=== PATIENT | male | born 1960 | race African-American/Black ===

== ENCOUNTER 2018-01-08 19:21 | Inpatient (IN) | payer OTHER ==
[~2018-01-08] VITALS: Ht 188 cm; Wt 59.0 kg
[2018-01-08] MEDS ORDERED: ASPIRIN 81MG TABLET PO ONE (21:15)
[2018-01-08 22:00] LABS: MEAN CORPUSCULAR HEMOGLOBIN 18.2 pg (28.0-32.0); MEAN CORPUSCULAR VOLUME 61.2 fL (80.0-94.0); MEAN PLATELET VOLUME 8.2 fl (7.4-10.4); PLATELET 258 x1000/uL (130-400); RED BLOOD CELL COUNT 3.72 mill/uL (4.7-6.1); RED CELL DISTRIBUTION WIDTH 21.4 % (11.6-14.6)
[2018-01-08 22:02] LABS: CHLORIDE 103 mEq/L (98-107); D-DIMER 1.91 mg/L FEU (<0.50); PARTIAL THROMBOPLASTIN TIME 25.6 sec (23.4-31.0); PROTHROMBIN TIME 10.3 sec (9.1-11.1)
[2018-01-08 22:06] LABS: HEMOGLOBIN. 6.8 g/dL (14.0-18.0)
[2018-01-08 22:07] LABS: HEMATOCRIT. 22.8 % (42.0-52.0)
[2018-01-08 22:54] LABS: PLATELET ESTIMATE NORMAL
[2018-01-09] MEDS ORDERED: LEVOFLOXACIN 750MG PREMIX 150 ML IV ONE (02:00)
[2018-01-09] MEDS ORDERED: SODIUM CHLORIDE 0.9% 1000ML BAG (SEPSIS BOLUS) IV ONE (02:00)
[2018-01-09] MEDS ORDERED: IOHEXOL-350 100 ML BOTTLE ONE (03:01)
[2018-01-09 03:49] LABS: CLARITY URINE CLOUDY (CLEAR); COLOR URINE YELLOW (YELLOW); KETONES URINE NEGATIVE (NEGATIVE); LEUKOCYTE ESTERASE URINE NEGATIVE (NEGATIVE); NITRITE URINE NEGATIVE (NEGATIVE); OCCULT BLOOD URINE NEGATIVE (NEGATIVE); PROTEIN URINE NEGATIVE (NEGATIVE); SPECIFIC GRAVITY URINE 1.018 (1.005-1.030)
[2018-01-09 11:13] VITALS: BP 136/81
[2018-01-09 11:36] VITALS: BP 136/81
[2018-01-09] MEDS ORDERED: HYDROCODONE/ACETAMINOPHEN 5/325MG TABLET PO PRN (11:45)
[2018-01-09] MEDS ORDERED: ACETAMINOPHEN 325MG TABLET PO PRN (11:45)
[2018-01-09] MEDS ORDERED: IPRATROPIUM/ALBUTEROL 0.5-3(2.5)MG/3ML NEB HHN PRN (11:45)
[2018-01-09] MEDS ORDERED: BENZONATATE 100MG CAPSULE PO PRN (11:45)
[2018-01-09] MEDS ORDERED: BUDESONIDE 0.5MG/2ML NEB HHN SCH (12:00)
[2018-01-09] MEDS ORDERED: SODIUM CHLORIDE 10% FOR INH 15ML VIAL NEB INH SCH (12:45)
[2018-01-09 16:48] VITALS: BP 118/68
[2018-01-09 19:55] LABS: *BARBITURATES SCREEN URINE NEGATIVE (NEGATIVE)
[2018-01-09 19:58] LABS: *AMPHETAMINES SCREEN URINE NEGATIVE (NEGATIVE); *BENZODIAZEPINES SCREEN URINE NEGATIVE (NEGATIVE); *COCAINE SCREEN URINE PRESUMTIVE POSITIVE (NEGATIVE); CANNABINOID URINE SCREEN NEGATIVE (NEGATIVE); METHADONE URINE SCREEN NEGATIVE (NEGATIVE); OPIATES URINE SCREEN PRESUMTIVE POSITIVE (NEGATIVE); PHENCYCLIDINE URINE SCREEN NEGATIVE (NEGATIVE)
[2018-01-09 20:00] VITALS: BP 113/68
[2018-01-10] VITALS (11 sets, daily range): BP systolic 104–141; BP diastolic 50–82
[2018-01-10 06:45] LABS: HEMATOCRIT 22.1 % (42.0-52.0); MEAN CORPUSCULAR HEMOGLOBIN 19.3 pg (28.0-32.0); MEAN CORPUSCULAR VOLUME 62.7 fL (80.0-94.0); PLATELET 253 x1000/uL (130-400); RED BLOOD CELL COUNT 3.52 mill/uL (4.7-6.1); RED CELL DISTRIBUTION WIDTH 23.8 % (11.6-14.6)
[2018-01-10 07:45] LABS: HEMOGLOBIN 6.8 g/dL (14.0-18.0)
[2018-01-10 07:48] LABS: CHLORIDE 101 mEq/L (98-107)
[2018-01-10] MEDS: LEVOFLOXACIN 750MG PREMIX 150 ML IV SCH (15:27)
[2018-01-10 23:39] LABS: HEMOGLOBIN 7.7 g/dL (14.0-18.0)
[2018-01-11] VITALS (9 sets, daily range): BP systolic 110–131; BP diastolic 62–78
[2018-01-11 08:22] LABS: HIV SCREEN 4G Non Reactive (Non Reactive)
[2018-01-11] MEDS: LEVOFLOXACIN 750MG PREMIX 150 ML IV SCH (14:08)
[2018-01-11 16:26] LABS: HEMATOCRIT 27.9 % (42.0-52.0); HEMOGLOBIN 8.7 g/dL (14.0-18.0); MEAN CORPUSCULAR HEMOGLOBIN 20.7 pg (28.0-32.0); MEAN CORPUSCULAR VOLUME 66.6 fL (80.0-94.0); PLATELET 268 x1000/uL (130-400); RED CELL DISTRIBUTION WIDTH 26.2 % (11.6-14.6)
[2018-01-11 16:30] LABS: INR 1.1; PROTHROMBIN TIME 10.6 sec (9.1-11.1)
[2018-01-11 16:43] LABS: CHLORIDE 101 mEq/L (98-107)
[2018-01-12 00:42] VITALS: BP 122/80
[2018-01-12 04:00] VITALS: BP 113/77
[2018-01-12 06:14] LABS: HEMATOCRIT 27.3 % (42.0-52.0); HEMOGLOBIN 8.6 g/dL (14.0-18.0); MEAN CORPUSCULAR HEMOGLOBIN 20.7 pg (28.0-32.0); MEAN CORPUSCULAR VOLUME 66.1 fL (80.0-94.0); PLATELET 271 x1000/uL (130-400); RED BLOOD CELL COUNT 4.14 mill/uL (4.7-6.1); RED CELL DISTRIBUTION WIDTH 26.3 % (11.6-14.6)
[2018-01-12 06:37] LABS: CHLORIDE 102 mEq/L (98-107)
[2018-01-12 08:00] VITALS: BP 101/61
[2018-01-12 12:00] VITALS: BP 110/65
[2018-01-12 16:00] VITALS: BP 127/77
[2018-01-12] MEDS: LEVOFLOXACIN 750MG PREMIX 150 ML IV SCH (16:42)
[2018-01-13] VITALS (8 sets, daily range): BP systolic 101–119; BP diastolic 51–73
[2018-01-13 07:15] LABS: HEMOGLOBIN 8.6 g/dL (14.0-18.0); MEAN CORPUSCULAR HEMOGLOBIN 21.2 pg (28.0-32.0); MEAN CORPUSCULAR VOLUME 66.3 fL (80.0-94.0); PLATELET 272 x1000/uL (130-400); RED BLOOD CELL COUNT 4.07 mill/uL (4.7-6.1)
[2018-01-13 10:15] LABS: CHLORIDE 101 mEq/L (98-107)
[2018-01-14] VITALS: BP 118/67
[2018-01-14 04:00] VITALS: BP 105/65
[2018-01-14 07:30] LABS: HEMATOCRIT 30.6 % (42.0-52.0); HEMOGLOBIN 9.5 g/dL (14.0-18.0); MEAN CORPUSCULAR HEMOGLOBIN 20.8 pg (28.0-32.0); MEAN CORPUSCULAR VOLUME 66.9 fL (80.0-94.0); PLATELET 292 x1000/uL (130-400); RED BLOOD CELL COUNT 4.57 mill/uL (4.7-6.1); RED CELL DISTRIBUTION WIDTH 27.3 % (11.6-14.6)
[2018-01-14 07:53] LABS: CHLORIDE 100 mEq/L (98-107)
[2018-01-14 09:54] VITALS: BP 112/66
[2018-01-14] MEDS ORDERED: LIDOCAINE HCL/PF 1% 2ML VIAL ONE (10:24)
[2018-01-14 12:51] VITALS: BP 108/65
[2018-01-14] MEDS: LEVOFLOXACIN 750MG PREMIX 150 ML IV SCH (14:21)
[2018-01-14 16:21] LABS: BG CARBOXYHEMOGLOBIN 0.4 % (0.5-1.5); BG DEOXYHEMOGLOBIN 3.7 % (0.0-5.0); BG FRACTION INSPIRED OXYGEN 21; BG HCO3 ACT 25.5 mmol/L (22.0-26.0); BG METHEMOGLOBIN 0.2 % (0.0-1.5); BG OXYGEN SATURATION 96.3 % (92.0-98.5); BG OXYHEMOGLOBIN 95.7 % (94.0-97.0); BG PCO2 39.8 mmHg (35.0-45.0); BG PH 7.424 (7.350-7.450); BG PO2 81.5 mmHg (75.0-100.0); BG SAMPLE SITE RIGHT BRACHIAL; BG TOTAL HEMOGLOBIN 10.1 g/dL (12.0-18.0); BG VENT MODE ROOM AIR
[2018-01-14 17:09] LABS: QFT MITOGEN VALUE >10.00 IU/mL (.); QFT TB GOLD PLUS Positive (Negative); QFT TB1 AG VALUE 3.32 IU/mL (.)
[2018-01-14 20:00] VITALS: BP 105/60
[2018-01-15] VITALS: BP 110/70
[2018-01-15 04:11] VITALS: BP 107/65
[2018-01-15 08:00] VITALS: BP 102/55
[2018-01-15 09:38] LABS: HEMATOCRIT 31.1 % (42.0-52.0); HEMOGLOBIN 9.7 g/dL (14.0-18.0); MEAN CORPUSCULAR VOLUME 67.1 fL (80.0-94.0); PLATELET 283 x1000/uL (130-400); RED BLOOD CELL COUNT 4.64 mill/uL (4.7-6.1); RED CELL DISTRIBUTION WIDTH 27.6 % (11.6-14.6)
[2018-01-15 10:12] LABS: CHLORIDE 102 mEq/L (98-107)
[2018-01-15] MEDS: LEVOFLOXACIN 750MG PREMIX 150 ML IV SCH (14:26)
[2018-01-15 20:00] VITALS: BP 105/54
[2018-01-16] VITALS: BP 113/70
[2018-01-16 04:00] VITALS: BP 113/73
[2018-01-16 08:00] VITALS: BP 104/63
[2018-01-16 12:00] VITALS: BP 113/63
[2018-01-16 16:00] VITALS: BP 103/59
[2018-01-16 17:29] VITALS: BP 125/74
== END 2018-01-16 18:25 | disposition home or self-care (01) | DRG 812 ==
LOC: ER 19:21 → 6WST 01-09 01:55 → EDBEDREQDT 01-09 01:58 → EDBEDREQ 01-09 01:58 → EDBEDREQTM 01-09 01:58 → CANRESERV 01-09 08:07 → ENRESERV 01-09 08:07
PROVIDERS: ADMIT Internal Medicine; ATTEND Internal Medicine
PROC: 30233N1 Transfusion of Nonautologous Red Blood Cells into Peripheral Vein, Percutaneous Approach (ICD-10-PCS; principal; 2018-01-09)
DX: D64.9 Anemia, unspecified (principal); R04.2 Hemoptysis; I87.1 Compression of vein; F50.00 Anorexia nervosa, unspecified; A15.9 Respiratory tuberculosis unspecified; F14.10 Cocaine abuse, uncomplicated; J98.2 Interstitial emphysema; J98.4 Other disorders of lung; I28.8 Other diseases of pulmonary vessels; F17.210 Nicotine dependence, cigarettes, uncomplicated; Z86.11 Personal history of tuberculosis; Z71.51 Drug abuse counseling and surveillance of drug abuser
CPT/HCPCS: 36415; 36430; 36600; 71045; 71275; 74176; 80048; 80305; 82270; 82375; 82805; 83605; 83880; 84145; 84484; 85014; 85018; 85027; 85379; 85384; 86480; 86850; 86900; 86920; 87070; 87116; 87389; 87804; 93005; 94640; 96365; 96366; 99285; J1956; J3490; J7030; J7050; J7131; J7620; J7626; P9016; Q9967

== ENCOUNTER 2023-03-24 20:57 | Emergency (ER) | payer BC, OTHER ==
[~2023-03-24] VITALS: Ht 190.5 cm; Wt 66.0 kg
[2023-03-24 21:15] VITALS: BP 149/95; PULSE 105; RESP 12; TEMP 98.5; O2SAT 98
[2023-03-25 01:11] LABS: BASOPHILS % 0.5 % (0.0-2.0); DIFFERENTIAL COMMENT 0; EOSINOPHILS % 0.9 % (0.0-5.0); HEMATOCRIT. 44.3 % (42.0-52.0); HEMOGLOBIN. 14.6 g/dL (14.0-18.0); LYMPHOCYTES % 14.7 % (20.0-50.0); MEAN CORPUSCULAR HEMOGLOBIN 33.5 pg (28.0-32.0); MEAN CORPUSCULAR HGB CONC 32.9 g/dL (31.0-37.0); MEAN CORPUSCULAR VOLUME 101.9 fL (80.0-94.0); MEAN PLATELET VOLUME 9.1 fl (7.4-10.4); MONOCYTES % 10.7 % (2.0-8.0); NEUTROPHILS % 73.2 % (40.0-76.0); PLATELET 136 x1000/uL (130-400); RED BLOOD CELL COUNT 4.35 mill/uL (4.7-6.1); RED CELL DISTRIBUTION WIDTH 14.7 % (11.6-14.6); WHITE BLOOD COUNT 5.3 x1000/uL (4.5-11.0)
[2023-03-25 01:30] LABS: ALANINE AMINOTRANSFERASE 43 IU/L (10-49); ALBUMIN 3.4 g/dL (3.2-4.8); ASPARTATE AMINOTRANSFERASE 49 IU/L (<34); BILIRUBIN TOTAL 0.8 mg/dL (0.1-1.0); CARBON DIOXIDE 28 mEq/L (21-32); CHLORIDE 107 mEq/L (98-107); GLUCOSE 90 mg/dL (70-105); POTASSIUM 4.2 mEq/L (3.5-5.1); PROTEIN TOTAL 6.7 g/dL (6.0-8.3); SODIUM 141 mEq/L (136-145); TROPONIN I HIGH SENSITIVITY 41 ng/L (3.0-53); UREA NITROGEN BLOOD 19 mg/dL (9-23)
[2023-03-25] MEDS ORDERED: FURO-152 MT (03:27)
== END 2023-03-25 04:09 | disposition home or self-care (01) ==
LOC: ER 20:57
DX: R60.9 Edema, unspecified (principal)
CPT/HCPCS: 36415; 71045; 73610; 80053; 83880; 84484; 85025; 99284